=== PATIENT | female | born 1945 | race Caucasian/White ===

== ENCOUNTER 2022-09-14 10:25 | Outpatient (CLI) | payer MEDICARE, BC, SELFPAY ==
[2022-09-14 10:33] VITALS: BP 143/79; PULSE 72; RESP 18; O2SAT 99
[2022-09-14] MEDS: TETRACAINE 0.5% OPHTH 1 DROP EYE-BOTH ×3 (10:41→11:06)
[2022-09-14] MEDS: BRIMONIDINE TARTRATE 0.2% OPHTH 1 DROP EYE-BOTH ×2 (10:43→11:26)
--- NOTE | 2022-09-14 11:56 | W.PM.OPTPROC ---
Procedure Note Date of procedure: 09/14/22 Will [facility] bill your pro fee for this procedure?: Yes Procedure Description: SURGEON: Arlette Powers MD PREOPERATIVE DIAGNOSIS: Posterior capsular opacity, right and left eye POSTOPERATIVE DIAGNOSIS: Posterior capsular opacity, right and left eye PROCEDURE: YAG laser capsulotomy, both eyes ANESTHESIA: Topical. ESTIMATED BLOOD LOSS: None PATHOLOGY SPECIMEN: None COMPLICATIONS: None INDICATIONS: See consult note for details. The risks, benefits and alternatives of the procedure were explained to the patient, who elected to proceed and signed informed consent to do so. PROCEDURE: The patient was brought to the pre-holding area where the right and left eyes were identified as the operative eyes. I placed my initials above the eyes. The following was given in both eyes: The patient received 2 sets of 1 drop of 0.5% tetracaine and 1 drop of 1% tropicamide. They also received 1 drop of 0.2% brimonidine. They received 1 drop of 0.5% tetracaine immediately prior to bringing them back for the procedure. The patient was then brought to the procedure room where the right and left eyes were again identified as the operative eyes. A YAG Eder capsulotomy lens was placed on the right eye. The laser was administered using a total number of 13 shots with an energy of 2.4 mJ per shot for a total energy of 31 mJ. The patient tolerated the procedure well. A YAG Eder capsulotomy lens was placed on the left eye. The laser was administered using a total number of 11 shots with an energy of 2.4 mJ per shot for a total energy of 26 mJ. The patient tolerated the procedure well. DISPOSITION: The patient was taken back to the pre-holding area and given 1 drop of 0.2% brimonidine in both eyes. They were discharged to home in stable condition. The patient was instructed to call me or go to the emergency department with any sudden change, including dramatic loss of vision, severe pain in the eye or eyebrow region, nausea, or vomiting. The patient was instructed to use the 0.2% brimonidine 1 drop 2 times a day in both eyes for 1 week. The patient will follow up in the clinic in 1-2 weeks. Surgeon: Arlette Powers MD
== END 2022-09-14 11:27 | disposition home or self-care (01) ==
PROVIDERS: PCP Physician Assistant Medical; Visit Provider Ophthalmology
DX: H26.9 Unspecified cataract (principal)
CPT/HCPCS: 66821; A9270

== ENCOUNTER 2023-12-12 16:54 | Outpatient (REF) | payer MEDICARE, BC, SELFPAY ==
[2023-12-12 17:24] LABS: Potassium* 4.7 mmol/L (3.6-5.1)
== END 2023-12-12 16:55 | disposition home or self-care (01) ==
LOC: NPINS 16:54
PROVIDERS: PCP Physician Assistant Medical
DX: Z01.818 Encounter for other preprocedural examination (principal)
CPT/HCPCS: 84132

== ENCOUNTER 2024-12-29 12:23 | Outpatient (CLI) | payer MEDICARE, BC, SELFPAY | END 2024-12-29 12:24 | disposition home or self-care (01) | LOC: NFLDUCREF 12:23 | PROVIDERS: PCP Physician Assistant Medical; Visit Provider Physician Assistant | DX: L03.115 Cellulitis of right lower limb (principal); B96.1 Klebsiella pneumoniae [K. pneumoniae] as the cause of diseases classified elsewhere; B96.89 Other specified bacterial agents as the cause of diseases classified elsewhere | CPT/HCPCS: 87070; 87181 ==